=== PATIENT | female | born 1945 | race Caucasian/White ===

== ENCOUNTER 2019-05-10 16:19 | Emergency (ER) | payer OTHER ==
[~2019-05-10] VITALS: Ht 167.6 cm; Wt 43.1 kg
[2019-05-10 17:21] VITALS: BP 157/71
[2019-05-10 17:49] LABS: Albumin 3.9 g/dL (3.4-5.0); BUN/Creatinine Ratio 21.3; Basophils # (auto) 0.1 uL; Basophils % (auto) 0.8 % (0.0-2.0); Calcium 9.2 mg/dL (8.5-10.1); Eosinophils # (auto) 0.3 uL; Eosinophils % (auto) 2.8 % (0.0-7.0); Hematocrit 38.7 % (36.0-46.0); Hemoglobin 13.1 g/dL (12.2-16.2); Lymphocytes # (auto) 3.4 uL; Mean Corpuscular Hemoglobin 31.6 pg (28.0-32.0); Mean Corpuscular Hgb Conc. 33.7 g/dL (32.0-36.0); Mean Corpuscular Volume 93.6 fL (80.0-100.0); Monocytes # (auto) 0.6 uL; Monocytes % (auto) 4.9 % (0.0-12.0); Neutrophils # (auto) 7.8 uL; Neutrophils % (auto) 63.5 % (37.0-80.0); Nucleated Red Blood Cells % 0.1 %; Platelet Count (auto) 194 10^3/uL (140-450); Potassium 3.8 mmol/L (3.5-5.1); Red Blood Cells 4.13 10^6/uL (4.0-5.20); Red Cell Distribution Width 15.7 % (11.8-14.3); White Blood Cell 12.3 10^3/uL (4.4-10.8)
[2019-05-10 17:54] LABS: Bilirubin, Total 0.9 mg/dL (0.2-1.0); Total Protein 7.6 g/dL (6.4-8.2)
[2019-05-10 18:00] LABS: INR 1.01 (0.9-1.15)
== END 2019-05-10 18:38 | disposition home or self-care (01) ==
LOC: ER 16:19
DX: R07.89 Other chest pain (principal); I10 Essential (primary) hypertension; E11.9 Type 2 diabetes mellitus without complications; E78.00 Pure hypercholesterolemia, unspecified; Z90.49 Acquired absence of other specified parts of digestive tract; Z90.710 Acquired absence of both cervix and uterus; Z90.89 Acquired absence of other organs; Z88.8 Allergy status to other drugs, medicaments and biological substances
CPT/HCPCS: 36415; 71045; 80053; 83735; 83880; 84484; 85025; 85610; 85730; 93005; 94761

== ENCOUNTER 2021-04-06 13:38 | Inpatient (IN) | payer OTHER ==
[~2021-04-06] VITALS: Ht 170.2 cm; Wt 69.4 kg
[2021-04-06] MEDS ORDERED: LABETALOL HCL 5 MG/ML 4ML SYRINGE IV ONE (13:45)
[2021-04-06 14:12] LABS: Basophils # (auto) 0.1 10 ^3/uL (0-0.2); Basophils % (auto) 0.7 % (0.0-2.0); Eosinophils # (auto) 0.3 10 ^3/uL (0-0.8); Eosinophils % (auto) 2.5 % (0.0-7.0); Hemoglobin 14.9 g/dL (12.2-16.2); Lymphocytes # (auto) 2.8 10 ^3/uL (0.4-5.4); Lymphocytes % (auto) 27.6 % (10.0-50.0); Mean Corpuscular Hemoglobin 30.6 pg (28.0-32.0); Mean Corpuscular Hgb Conc. 33.9 g/dL (32.0-36.0); Mean Corpuscular Volume 90.2 fL (80.0-100.0); Monocytes # (auto) 0.8 10 ^3/uL (0-1.3); Monocytes % (auto) 7.5 % (0.0-12.0); Neutrophils # (auto) 6.2 10 ^3/uL (1.6-8.6); Neutrophils % (auto) 61.7 % (37.0-80.0); Nucleated Red Blood Cells % 0.1 %; Red Blood Cells 4.88 10^6/uL (4.0-5.20); Red Cell Distribution Width 15.5 % (11.8-14.3); White Blood Cell 10.1 10^3/uL (4.4-10.8)
[2021-04-06 14:47] LABS: Albumin 3.4 g/dL (3.4-5.0); BUN/Creatinine Ratio 13.5; Bilirubin, Total 0.8 mg/dL (0.2-1.0); Calcium 8.6 mg/dL (8.5-10.1); Potassium 3.6 mmol/L (3.5-5.1); Total Protein 7.9 g/dL (6.4-8.2)
[2021-04-06] MEDS ORDERED: HYDROcodone-ACET 5/325MG TAB PO ONE (15:45)
[2021-04-06] MEDS ORDERED: SODIUM CHLORIDE 0.9% 1,000 ML IV ONE (16:00)
[2021-04-06] MEDS ORDERED: ENOXAPARIN SOD 100 MG/1 ML SYRINGE SC ONE (16:00)
[2021-04-06] MEDS ORDERED: hydrALAZINE HCL 20 MG/ML VL IV ONE (16:15)
[2021-04-06] MEDS ORDERED: ONDANSETRON HCL 4 MG/2 ML VIAL IV ONE (16:30)
[2021-04-06] MEDS ORDERED: MORPHINE SULF INJ 2 MG/ML SYRINGE 1ML IV ONE (16:30)
[2021-04-06] MEDS ORDERED: ONDANSETRON HCL 4 MG/2 ML VIAL IV PRN (17:00)
[2021-04-06] MEDS ORDERED: HYDROcodone-ACET 5/325MG TAB PO PRN (17:00)
[2021-04-06] MEDS ORDERED: DEXTROSE (50%) 50ML SYRG IV PRN (17:00)
[2021-04-06] MEDS ORDERED: NITROGLYCERIN 0.4 MG SL TAB SL PRN (17:00)
[2021-04-06] MEDS ORDERED: hydrALAZINE HCL 20 MG/ML VL IV PRN (17:00)
[2021-04-06] MEDS ORDERED: MORPHINE SULF INJ 2 MG/ML SYRINGE 1ML IV PRN ×2 (17:00)
[2021-04-06] MEDS: InsuLIN REG 1unit/0.01ml Soln (100units/ml) SC SCH ×2 (17:58→23:01)
[2021-04-06] MEDS: ACCU-CHEK COMFORT CURVE STRIP VI SCH ×2 (18:07→22:00)
[2021-04-06 22:00] VITALS: BP 122/62
[2021-04-06] MEDS ORDERED: CEFEPIME 2 GM in SODIUM CHL 0.9% 50 ML IV SCH (22:00)
[2021-04-06] MEDS: ACETAMINOPHEN 500 MG TAB PO PRN (22:15)
[2021-04-06] MEDS: ATORVASTATIN 20 MG TAB PO SCH (22:15)
[2021-04-06] MEDS: METOPROLOL TARTRATE 50 MG TAB PO SCH (22:16)
[2021-04-07] MEDS ORDERED: INSU1INJ21 SC (02:05)
[2021-04-07] MEDS ORDERED: CEPH250C28 PO (02:05)
[2021-04-07] MEDS ORDERED: METH2.5T62 PO (02:05)
[2021-04-07] MEDS ORDERED: MAGN400T40 PO (02:05)
[2021-04-07] MEDS ORDERED: ERGO1CAP12 PO (02:05)
[2021-04-07 05:00] VITALS: BP 117/57
[2021-04-07] MEDS: ACCU-CHEK COMFORT CURVE STRIP VI SCH ×4 (05:59→22:06)
[2021-04-07] MEDS: ACETAMINOPHEN 500 MG TAB PO PRN (06:11)
[2021-04-07] MEDS: InsuLIN REG 1unit/0.01ml Soln (100units/ml) SC SCH ×4 (06:13→22:07)
[2021-04-07 06:59] LABS: Basophils # (auto) 0.1 10 ^3/uL (0-0.2); Basophils % (auto) 0.7 % (0.0-2.0); Eosinophils # (auto) 0.2 10 ^3/uL (0-0.8); Eosinophils % (auto) 2.5 % (0.0-7.0); Hematocrit 39.3 % (36.0-46.0); Hemoglobin 13.3 g/dL (12.2-16.2); Lymphocytes # (auto) 3.5 10 ^3/uL (0.4-5.4); Lymphocytes % (auto) 37.5 % (10.0-50.0); Mean Corpuscular Hemoglobin 30.9 pg (28.0-32.0); Monocytes # (auto) 0.7 10 ^3/uL (0-1.3); Monocytes % (auto) 7.6 % (0.0-12.0); Neutrophils # (auto) 4.8 10 ^3/uL (1.6-8.6); Neutrophils % (auto) 51.7 % (37.0-80.0); Nucleated Red Blood Cells % 0.1 %; Red Blood Cells 4.32 10^6/uL (4.0-5.20); Red Cell Distribution Width 15.7 % (11.8-14.3); White Blood Cell 9.3 10^3/uL (4.4-10.8)
[2021-04-07 07:13] LABS: INR 1.02 (0.9-1.15); Partial Thromboplastin Time 25.4 sec (23.0-31.2)
[2021-04-07 07:18] LABS: Urine Bacteria NONE SEEN /hpf (None Seen); Urine Blood Negative /uL (Negative); Urine Budding Yeast OCCASIONAL /hpf (None Seen); Urine Mucus FEW (None Seen); Urine Specific Gravity 1.013 (1.001-1.035); Urine WBC 4 /hpf (0 - 5)
[2021-04-07 09:00] VITALS: BP 122/65
[2021-04-07] MEDS: LISINOPRIL 10 MG TAB PO SCH (09:22)
[2021-04-07] MEDS: ASPirin-EC 81 mg tab PO SCH (09:23)
[2021-04-07] MEDS: METOPROLOL TARTRATE 50 MG TAB PO SCH ×2 (09:24→22:06)
[2021-04-07 13:00] VITALS: BP 123/62
[2021-04-07 17:00] VITALS: BP 106/47
[2021-04-07] MEDS ORDERED: LOPERAMIDE HCL 2 MG CAP PO ONE (20:00)
[2021-04-07] MEDS ORDERED: LOPERAMIDE HCL 2 MG CAP PO PRN (20:00)
[2021-04-07] MEDS: ATORVASTATIN 20 MG TAB PO SCH (22:06)
[2021-04-07 22:41] LABS: Cholesterol 198 mg/dL (< 200); HDL Cholesterol 39 mg/dL (40-59); Triglycerides 452 mg/dL (< 150)
[2021-04-08] MEDS: ACETAMINOPHEN 500 MG TAB PO PRN ×2 (00:04→17:35)
[2021-04-08 05:50] LABS: Calcium 8.8 mg/dL (8.5-10.1); Magnesium 2.1 mg/dL (1.6-2.6); Potassium 3.7 mmol/L (3.5-5.1)
[2021-04-08 05:55] LABS: BUN/Creatinine Ratio 17.7
[2021-04-08] MEDS: InsuLIN REG 1unit/0.01ml Soln (100units/ml) SC SCH ×4 (06:20→21:55)
[2021-04-08] MEDS: ACCU-CHEK COMFORT CURVE STRIP VI SCH ×4 (06:22→21:55)
[2021-04-08 08:00] VITALS: BP 104/59
[2021-04-08 09:00] VITALS: BP 104/59
[2021-04-08] MEDS: METOPROLOL TARTRATE 50 MG TAB PO SCH (10:00)
[2021-04-08] MEDS: LISINOPRIL 10 MG TAB PO SCH (10:00)
[2021-04-08] MEDS: ASPirin-EC 81 mg tab PO SCH (10:54)
[2021-04-08] MEDS ORDERED: IBUPROFEN 400 MG TAB PO ONE (11:45)
[2021-04-08 13:00] VITALS: BP 137/78
[2021-04-08] MEDS ORDERED: LIDOCAINE 2%HCL (LOCAL ANESTH.) INJ 20ML MDV ONE (13:30)
[2021-04-08 16:56] VITALS: BP 152/80
[2021-04-08 17:40] VITALS: BP 131/60
[2021-04-08] MEDS: METOPROLOL TARTRATE 25 MG TAB PO SCH (21:54)
[2021-04-08] MEDS: ATORVASTATIN 20 MG TAB PO SCH (21:54)
[2021-04-08] MEDS: INSULIN LANTUS (GLARGINE) 1 /0.01ml (100units/ml) SC SCH (21:55)
[2021-04-08 22:00] VITALS: BP 129/75
[2021-04-09] VITALS (7 sets, daily range): BP systolic 113–149; BP diastolic 52–75
[2021-04-09 06:04] LABS: BUN/Creatinine Ratio 20.5; Calcium 8.4 mg/dL (8.5-10.1); Potassium 3.6 mmol/L (3.5-5.1)
[2021-04-09] MEDS: ACCU-CHEK COMFORT CURVE STRIP VI SCH ×4 (06:07→21:22)
[2021-04-09] MEDS: InsuLIN REG 1unit/0.01ml Soln (100units/ml) SC SCH ×4 (06:07→21:17)
[2021-04-09] MEDS: LISINOPRIL 10 MG TAB PO SCH (09:31)
[2021-04-09] MEDS: METOPROLOL TARTRATE 25 MG TAB PO SCH ×2 (09:31→21:12)
[2021-04-09] MEDS: ASPirin-EC 81 mg tab PO SCH (09:31)
[2021-04-09] MEDS: ACETAMINOPHEN 500 MG TAB PO PRN (17:49)
[2021-04-09] MEDS: ATORVASTATIN 20 MG TAB PO SCH (21:11)
[2021-04-09] MEDS: INSULIN LANTUS (GLARGINE) 1 /0.01ml (100units/ml) SC SCH (21:17)
== END 2021-04-09 23:55 | disposition short-term general hospital (02) | DRG 64 ==
LOC: EDBD 13:38 → ER 13:38 → TELE 17:05 → TELE-WESTW 20:46
PROVIDERS: ADMIT Nurse Practitioner Acute Care; ATTEND Internal Medicine
DX: I63.89 Other cerebral infarction (principal); I21.4 Non-ST elevation (NSTEMI) myocardial infarction; I50.43 Acute on chronic combined systolic (congestive) and diastolic (congestive) heart failure; Z20.822 Contact with and (suspected) exposure to COVID-19; I16.0 Hypertensive urgency; E11.65 Type 2 diabetes mellitus with hyperglycemia; I25.10 Atherosclerotic heart disease of native coronary artery without angina pectoris; E66.9 Obesity, unspecified; I35.9 Nonrheumatic aortic valve disorder, unspecified; I44.7 Left bundle-branch block, unspecified; E78.5 Hyperlipidemia, unspecified; G40.909 Epilepsy, unspecified, not intractable, without status epilepticus; F17.200 Nicotine dependence, unspecified, uncomplicated; F41.9 Anxiety disorder, unspecified; I11.0 Hypertensive heart disease with heart failure; Z79.4 Long term (current) use of insulin; Z79.82 Long term (current) use of aspirin; Z79.899 Other long term (current) drug therapy; Z80.6 Family history of leukemia; Z82.49 Family history of ischemic heart disease and other diseases of the circulatory system; Z83.3 Family history of diabetes mellitus; Z86.73 Personal history of transient ischemic attack (TIA), and cerebral infarction without residual deficits; Z90.710 Acquired absence of both cervix and uterus; Z91.19 Patient's noncompliance with other medical treatment and regimen; Z95.2 Presence of prosthetic heart valve; Z91.14 Patient's other noncompliance with medication regimen; Z95.1 Presence of aortocoronary bypass graft; Z90.49 Acquired absence of other specified parts of digestive tract; Z98.51 Tubal ligation status; Z91.041 Radiographic dye allergy status; Z68.24 Body mass index [BMI] 24.0-24.9, adult
CPT/HCPCS: 36415; 70450; 70551; 71045; 80048; 80053; 80061; 81001; 82962; 83036; 83735; 83880; 84484; 85025; 85610; 85730; 86141; 87426; 87493; 93005; 93306; 93886; 95819; 96361; 96372; 96374; 96375; G0378; J1815; J2405; J3490